=== PATIENT | female | born 1990 | race Hispanic/Latino ===

== ENCOUNTER 2023-12-09 13:57 | Emergency (ER) | payer OTHER ==
[2023-12-09] MEDS ORDERED: Acetaminophen 325 MG TAB ONE (14:38)
== END 2023-12-09 15:25 | disposition home or self-care (01) ==
LOC: NAV ERS 13:57
DX: O9A.211 Injury, poisoning and certain other consequences of external causes complicating pregnancy, first trimester (principal); S80.12XA Contusion of left lower leg, initial encounter; Z3A.08 8 weeks gestation of pregnancy
CPT/HCPCS: 99284